=== PATIENT | male | born 1995 | race Caucasian/White ===

== ENCOUNTER 2017-01-16 17:33 | Emergency (ER) | payer BC ==
[~2017-01-16 17:33] MED LIST: DIPRIVAN VIAL ONE; SUPRANE IN ONE; VERSED ONE; XYLOCAINE 2 % (PLAIN) ONE; ZOFRAN INJ 4 MG VIAL ONE
[2017-01-16] MEDS ORDERED: PHENERGAN INJ 25 MG ONE (17:35)
[2017-01-16] MEDS ORDERED: DEMEROL INJ ONE (17:35)
[2017-01-16] MEDS ORDERED: DEMEROL INJ IM ONE (17:38)
[2017-01-16] MEDS ORDERED: PHENERGAN INJ 25 MG IM ONE (17:38)
[2017-01-16 17:41] VITALS: BP 156/98; BMI 20.3
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
[2017-01-16] MEDS ORDERED: ANCEF VIAL 1 GM IM ONE (18:55)
[2017-01-16] MEDS ORDERED: ANCEF VIAL 1 GM ONE (18:57)
== END 2017-01-16 19:40 | disposition home or self-care (01) ==
LOC: ER 17:34
DX: S62.326B Displaced fracture of shaft of fifth metacarpal bone, right hand, initial encounter for open fracture (principal); X58.XXXA Exposure to other specified factors, initial encounter
CPT/HCPCS: 29125; 29260; 73130; 96372; 99282; J0690; J2001; J2175; J2250; J2405; J2550; J3490

== ENCOUNTER 2017-01-16 21:35 | Observation (INO) | payer BC ==
[2017-01-17] MEDS ORDERED: TORADOL 30 MG VIAL IVP PRN (00:32)
[2017-01-17] MEDS ORDERED: DILAUDID INJ IVP PRN ×2 (00:32→11:14)
[2017-01-17] MEDS ORDERED: ZOFRAN INJ 4 MG VIAL IVP PRN ×2 (00:32→11:14)
[2017-01-17 01:03] LABS: BASOPHILS # (AUTO) 0.1 X10^3/uL (0.0-0.1); BASOPHILS % (AUTO) 0.5 % (0.2-1.0); EOSINOPHILS # (AUTO) 0.4 x10^3/uL (0.0-0.2); EOSINOPHILS % (AUTO) 3.1 % (0.9-2.9); HEMATOCRIT 41.6 % (42.0-54.0); HEMOGLOBIN 13.9 g/dL (13.5-18.0); LYMPHOCYTES # (AUTO) 2.8 X10^3/uL (1.3-2.9); LYMPHOCYTES % (AUTO) 22.1 % (21.0-51.0); MEAN CORPUSCULAR HEMOGLOBIN 27.8 pg (27.0-34.0); MEAN CORPUSCULAR HGB CONC 33.5 g/dL (33.0-35.0); MEAN CORPUSCULAR VOLUME 82.9 fL (80.0-100.0); MEAN PLATELET VOLUME 8.7 fL (7.4-11.0); MONOCYTES # (AUTO) 1.1 x10^3/uL (0.3-0.8); MONOCYTES % (AUTO) 8.2 % (0.0-13.0); NEUTROPHILS # (AUTO) 8.5 x10^3/uL (2.2-4.8); NEUTROPHILS % (AUTO) 66.1 % (42.0-75.0); PLATELET COUNT 140 X10^3/uL (150.0-450.0); RED BLOOD COUNT 5.01 X10^6/uL (4.7-6.0); RED CELL DISTRIBUTION WIDTH 13.2 % (11.6-16.5); WHITE BLOOD COUNT 12.8 X10^3/uL (3.6-10.0)
[2017-01-17 01:10] LABS: ALANINE AMINOTRANSFERASE 25 Units/L (12-78); ALBUMIN 3.7 g/dL (3.4-5.0); ALKALINE PHOSPHATASE 55 Units/L (46-116); ASPARTATE AMINO TRANSFERASE 24 Units/L (15-37); BLOOD UREA NITROGEN 13 mg/dL (7-18); CALCIUM 8.2 mg/dL (8.5-10.1); CARBON DIOXIDE 26.6 mmol/L (21-32); CHLORIDE 107 mmol/L (98-107); CREATININE 0.85 mg/dL (0.70-1.30); GLUCOSE 98 mg/dL (65-99); SODIUM 141 mmol/L (136-145); TOTAL PROTEIN 6.9 g/dL (6.4-8.2); eGFR BLACK RACES > 60 (>60); eGFR NON BLACK RACES > 60 (>60)
[2017-01-17] MEDS: NS 1000 ML 1,000 ML IV SCH ×2 (01:12→14:41)
[2017-01-17 05:42] LABS: ALANINE AMINOTRANSFERASE 23 Units/L (12-78); ALBUMIN 3.7 g/dL (3.4-5.0); ALKALINE PHOSPHATASE 49 Units/L (46-116); ASPARTATE AMINO TRANSFERASE 24 Units/L (15-37); BLOOD UREA NITROGEN 13 mg/dL (7-18); CALCIUM 8.6 mg/dL (8.5-10.1); CARBON DIOXIDE 26.6 mmol/L (21-32); CHLORIDE 108 mmol/L (98-107); CREATININE 0.74 mg/dL (0.70-1.30); GLUCOSE 84 mg/dL (65-99); SODIUM 143 mmol/L (136-145); TOTAL PROTEIN 6.8 g/dL (6.4-8.2); eGFR BLACK RACES > 60 (>60); eGFR NON BLACK RACES > 60 (>60)
[2017-01-17 05:51] LABS: BASOPHILS # (AUTO) 0.1 X10^3/uL (0.0-0.1); BASOPHILS % (AUTO) 0.7 % (0.2-1.0); EOSINOPHILS # (AUTO) 0.4 x10^3/uL (0.0-0.2); EOSINOPHILS % (AUTO) 3.5 % (0.9-2.9); LYMPHOCYTES # (AUTO) 3.1 X10^3/uL (1.3-2.9); LYMPHOCYTES % (AUTO) 26.5 % (21.0-51.0); MEAN CORPUSCULAR HEMOGLOBIN 27.9 pg (27.0-34.0); MEAN CORPUSCULAR HGB CONC 33.4 g/dL (33.0-35.0); MEAN CORPUSCULAR VOLUME 83.5 fL (80.0-100.0); MEAN PLATELET VOLUME 9.4 fL (7.4-11.0); MONOCYTES # (AUTO) 0.9 x10^3/uL (0.3-0.8); MONOCYTES % (AUTO) 7.3 % (0.0-13.0); NEUTROPHILS # (AUTO) 7.3 x10^3/uL (2.2-4.8); PLATELET COUNT 139 X10^3/uL (150.0-450.0); RED BLOOD COUNT 5.02 X10^6/uL (4.7-6.0); RED CELL DISTRIBUTION WIDTH 13.1 % (11.6-16.5); WHITE BLOOD COUNT 11.8 X10^3/uL (3.6-10.0)
[2017-01-17] MEDS ORDERED: MARCAINE 0.25% INJ ONE (08:55)
[2017-01-17] MEDS ORDERED: BACITRACIN VIAL ONE (08:56)
[2017-01-17] MEDS ORDERED: ANCEF VIAL 1 GM ONE (09:11)
[2017-01-17] MEDS ORDERED: NS 50 ML IV + SPIKE MINIBAG* 50 ML IV ONE (09:11)
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
--- NOTE | 2017-01-17 09:29 | PCM.PROG ---
Progress Note - Progress Note for Day of Date: 01/17/17 - Subjective Subjective: WAS ADMITTED FROM HOME LAST NIGHT WITH COMPLAINTS OF UNCONTROLLED PAIN FROM A DISPLACED 5TH METACARPAL FRACTURE TO THE RIGHT HAND. UPON MORNIN ROUNDS, PATIENT IS LYING IN BED WITH EYES OPEN. FAMILY IS AT BEDSIDE. PATIENT HAS NO COMPLAINTS OF PAIN AT THIS TIME. PATIENT RATES HIS PAIN 3/10. VITALS THIS AM ARE 97.8, 50, 20, 98%, 132/73. LABS WERE OBTAINED AND REPORT A NORMAL CBC EXCEPT WBC 11.8, PLATELET COUNT 139. NORMAL CMP EXCEPT CHLORIDE 108, TOTAL BILI 1.20. A CHEST XRAY AND EKG WERE OBTAINED AND ARE WNL. HAS REVIEWED PATIENT'S XRAY AND PLANS FOR SURGERY THIS AM. PATIENT IS AWARE AND IS IN AGREEMENT. PATIENT HAS BEEN MEDICALLY CLEARED FOR SURGERY. - Past Medical Family Social History Past Med/Fam/Surg Hx: No changes since H&P Allergies: Allergies MS Penicillins [Penicillins] Allergy (Verified 01/10/12 18:57) - Review of Systems ROS: No change since H&P - Vital Signs and I&O's Vital Signs: Temperature 97.8 F Pulse Rate [Left Radial] 50 Respiratory Rate 20 Blood Pressure [Left Calf] 132/73 Blood Pressure 156/98 O2 Sat by Pulse Oximetry 98 Intake and Output: Intake & Output 01/14/17 01/15/17 01/16/17 01/17/17 11:59 11:59 11:59 11:59 Intake Total 300 Output Total 0 Balance 300 - Physical Exam Oriented: Normal Eyes: Normal Ear: Normal. negative: Right, Left, Swelling, Ecchymosis, Hemotypanum, Abrasion , Laceration Nose: Normal. negative: Injected, Discharge, Blood, Other Throat: Normal. negative: Tonsillar Hypertrophy, Red, Exudate, Dry, Other Cardiovascular: Normal. negative: Tachycardia, Bradycardia, Irregular, S3, S4, Systolic, Diastolic, Murmur, Edema, Other : Normal. negative: Dysuria, Hematuria, Frequency, Discharge, Testicular Pain , Bleeding, , Other Auscultation: Bowel Sounds: Normal. negative: Bruit, Absent, Increased, Decreased, High Pitched, Other Palpation: Normal Tenderness: Normal Skin: Tender (RIGHT HAND SWELLING AND TENDERNESS ) Musculoskeletal: Hand, Swelling, Tender Psychiatric: Normal Mood Description: Calm Affect: Normal Speech Pattern: Clear - Laboratory and Diagnostics Result Diagrams: 01/17/17 04:00 01/17/17 04:00 Labs: Laboratory WBC 11.8 X10^3/uL (3.6-10.0) H 01/17/17 04:00 RBC 5.02 X10^6/uL (4.7-6.0) 01/17/17 04:00 Hgb 14.0 g/dL (13.5-18.0) 01/17/17 04:00 Hct 42.0 % (42.0-54.0) 01/17/17 04:00 MCV 83.5 fL (80.0-100.0) 01/17/17 04:00 MCH 27.9 pg (27.0-34.0) 01/17/17 04:00 MCHC 33.4 g/dL (33.0-35.0) 01/17/17 04:00 RDW 13.1 % (11.6-16.5) 01/17/17 04:00 Plt Count 139 X10^3/uL (150.0-450.0) L 01/17/17 04:00 MPV 9.4 fL (7.4-11.0) 01/17/17 04:00 Neut % 62.0 % (42.0-75.0) 01/17/17 04:00 Lymph % 26.5 % (21.0-51.0) 01/17/17 04:00 [place] % 7.3 % (0.0-13.0) 01/17/17 04:00 Eos % 3.5 % (0.9-2.9) H 01/17/17 04:00 Baso % 0.7 % (0.2-1.0) 01/17/17 04:00 Neut # 7.3 x10^3/uL (2.2-4.8) H 01/17/17 04:00 Lymph # 3.1 X10^3/uL (1.3-2.9) H 01/17/17 04:00 [place] # 0.9 x10^3/uL (0.3-0.8) H 01/17/17 04:00 Eos # 0.4 x10^3/uL (0.0-0.2) H 01/17/17 04:00 Baso # 0.1 X10^3/uL (0.0-0.1) 01/17/17 04:00 Absolute Nucleated RBC 0.1 /100WBC 01/17/17 04:00 Sodium 143 mmol/L (136-145) 01/17/17 04:00 Corrected Sodium TNP 01/17/17 04:00 Potassium 3.9 mmol/L (3.5-5.1) 01/17/17 04:00 Chloride 108 mmol/L (98-107) H 01/17/17 04:00 Carbon Dioxide 26.6 mmol/L (21-32) 01/17/17 04:00 BUN 13 mg/dL (7-18) 01/17/17 04:00 Creatinine 0.74 mg/dL (0.70-1.30) 01/17/17 04:00 Est GFR (MDRD) Af Amer > 60 (>60) 01/17/17 04:00 Est GFR (MDRD) Non-Af > 60 (>60) 01/17/17 04:00 Glucose 84 mg/dL (65-99) 01/17/17 04:00 Calcium 8.6 mg/dL (8.5-10.1) 01/17/17 04:00 Corrected Calcium TNP 01/17/17 04:00 Total Bilirubin 1.20 mg/dL (0.2-1.0) H 01/17/17 04:00 AST 24 Units/L (15-37) 01/17/17 04:00 ALT 23 Units/L (12-78) 01/17/17 04:00 Alkaline Phosphatase 49 Units/L (46-116) 01/17/17 04:00 Total Protein 6.8 g/dL (6.4-8.2) 01/17/17 04:00 Albumin 3.7 g/dL (3.4-5.0) 01/17/17 04:00 Globulin 3.1 g/dL (2.5-4.5) 01/17/17 04:00 Albumin/Globulin Ratio 1.2 Ratio (1.1-2.1) 01/17/17 04:00 - Plan (1) Fracture, metacarpal shaft, open Status: Acute Qualifiers: Encounter type: initial encounter Metacarpal bone: fifth Fracture alignment: displaced Laterality: right Fracture healing: F Qualified Code( s): S62.326B - Displaced fracture of shaft of fifth metacarpal bone, right hand , initial encounter for open fracture Plan: SURGICAL CONSULT, IV PAIN MEDICATION, CONTINUE TO MONITOR
[2017-01-17] MEDS ORDERED: NAROPIN 0.75% ONE (09:40)
[2017-01-17] MEDS: LR 1000 ML IV 1,000 ML IV ONE ×2 (09:40→10:14)
[2017-01-17] MEDS ORDERED: FENTANYL INJ 100 mcg ONE (09:40)
[2017-01-17] MEDS ORDERED: NS IRRIGATION 1000 ML 1,000 ML with BACITRACIN VIAL 50,000 UNT IR ONE ×2 (10:37)
[2017-01-17] MEDS ORDERED: REGLAN INJ 10 MG VIAL IVP PRN (11:14)
[2017-01-17] MEDS ORDERED: PHENERGAN INJ 25 MG IVP PRN (11:14)
[2017-01-17] MEDS ORDERED: BENADRYL INJ 50 MG VIAL IVP PRN (11:14)
[2017-01-17] MEDS ORDERED: DILAUDID INJ ONE (11:18)
[2017-01-17] MEDS ORDERED: NORCO 5/325 MG TAB PO ONE (13:12)
[2017-01-17 14:57] VITALS: BP 130/75
== END 2017-01-17 14:30 | disposition home or self-care (01) ==
LOC: MED/SURG 21:35
PROVIDERS: ADMIT Internal Medicine; ATTEND Internal Medicine
PROC: 0PSP04Z Reposition Right Metacarpal with Internal Fixation Device, Open Approach (ICD-10-PCS; principal; 2017-01-17 10:00)
DX: S62.326B Displaced fracture of shaft of fifth metacarpal bone, right hand, initial encounter for open fracture (principal); M79.641 Pain in right hand; M79.89 Other specified soft tissue disorders; W22.8XXA Striking against or struck by other objects, initial encounter; Y92.89 Other specified places as the place of occurrence of the external cause
CPT/HCPCS: 36415; 76000; 80053; 85025; 93005; A4222; S0020; G0378; J0690; J1170; J3010; J7120

== ENCOUNTER → 2017-01-30 | Outpatient (CLI) | payer BC ==
[2017-01-17 14:57] VITALS: BP 130/75
--- NOTE | 2017-01-30 09:09 | RAD ---
HISTORY: Follow up fracture Study: Right hand three view Comparison: January 16, 2017 Findings: The previously noted 5th metacarpal shaft fracture has been openly reduced and internally fixed with a plate and 8 screws. Position alignment is anatomic. The remainder of the bones and joints of the hand are intact. IMPRESSION: Status post open reduction, internal fixation mid 5th metacarpal shaft fracture in anatomic alignmen t Reported By:
== END ==
LOC: RAD 08:42
PROVIDERS: ATTEND Specialist
DX: S62.336 Displaced fracture of neck of fifth metacarpal bone, right hand (principal); X58.XXXS Exposure to other specified factors, sequela
CPT/HCPCS: 73130